=== PATIENT | female | born 1960 | race Hispanic/Latino ===

== ENCOUNTER 2019-07-03 10:06 | Emergency (ER) | payer OTHER ==
[~2019-07-03] VITALS: Ht 154.9 cm; Wt 76.7 kg
[~2019-07-03 10:06] MED LIST: ASPIRIN CHEW81 MG PO
[2019-07-03] MEDS ORDERED: ASPIRIN 81 MG CHEW TAB PO ONE (10:15)
[2019-07-03 10:57] LABS: BASOPHILS % 0.4 % (0.0-1.0); BILIRUBIN,URINE NEGATIVE (NEGATIVE); CLARITY,URINE CLEAR (CLEAR); COLOR,URINE YELLOW (YELLOW); EOSINOPHILS # (AUTO) 0.1 (0.0-0.4); EOSINOPHILS % 1.3 % (0.0-6.0); HEMOGLOBIN 14.4 g/dL (12.0-16.0); KETONES,URINE NEGATIVE (NEGATIVE); LEUKOCYTE ESTERASE ,URINE NEGATIVE (NEGATIVE); LYMPHOCYTES # (AUTO) 3.3 (1.0-3.2); LYMPHOCYTES % 39.5 % (18.0-39.1); MEAN CORPUSCULAR HEMOGLOBIN 31.4 pg (28-32); MEAN CORPUSCULAR HGB CONC 34.3 g/dL (31-35); MEAN CORPUSCULAR VOLUME 91.7 fL (81-99); MONOCYTES # (AUTO) 0.6 (0.2-0.8); MONOCYTES % 6.8 % (4.4-11.3); NEUTROPHILS # (AUTO) 4.3 (2.1-6.9); NEUTROPHILS % 51.8 % (38.7-80.0); NITRITE,URINE NEGATIVE (NEGATIVE); PLATELET COUNT 240 x10e3/uL (140-360); PROTEIN,URINE DIPSTICK NEGATIVE (NEGATIVE); RED BLOOD COUNT 4.58 x10e6/uL (3.6-5.1); RED CELL DISTRIBUTION WIDTH 12.1 % (11.7-14.4); URINE UROBILINOGEN 0.2 mg/dL (0.2 - 1)
[2019-07-03 11:07] LABS: BACTERIA,URINE RARE /HPF; EPITHELIAL CELLS,URINE FEW /LPF; INR 0.87; PROTHROMBIN TIME 12.3 seconds (11.9-14.5)
[2019-07-03 11:08] LABS: PARTIAL THROMBOPLASTIN TIME 28.3 seconds (23.8-35.5)
[2019-07-03 11:18] LABS: ALANINE AMINOTRANSFERASE 32 IU/L (0-55); ALBUMIN 3.7 g/dL (3.5-5.0); ALKALINE PHOSPHATASE 115 IU/L (40-150); BLOOD UREA NITROGEN 11 mg/dL (7-26); BUN/CREATININE RATIO 15 (6-25); CALCIUM 9.4 mg/dL (8.4-10.2); CARBON DIOXIDE 24 mmol/L (22-29); CHLORIDE 107 mmol/L (98-107); CREATINE KINASE 90 IU/L (29-168); CREATININE, SERUM 0.74 mg/dL (0.57-1.11); EST GLOMERULAR FILTRATION RATE > 60 ML/MIN (60-); GLUCOSE 110 mg/dL (74-118); SODIUM 141 mmol/L (136-145)
--- NOTE | 2019-07-03 11:19 | Diagnostic Imaging Report ---
EXAMINATION: CHEST SINGLE (PORTABLE) INDICATION: Chest pain COMPARISON: None FINDINGS: LINES/TUBES:EKG leads overlie the chest. LUNGS:The lungs are well-inflated. No focal consolidation or pulmonary edema. PLEURA:No pleural effusion or pneumothorax. MEDIASTINUM:The cardiomediastinal silhouette appears normal in size and shape. BONES/SOFT TISSUES:No acute osseous injury. ABDOMEN:No free air under the diaphragm. IMPRESSION: No focal pneumonia or pulmonary edema. Signed by: Juan Anthony MD on 07/03/2019 11:16 AM
[2019-07-03 16:33] LABS: CREATINE KINASE MB 0.7 ng/mL (0-5.0)
[2019-07-03 16:41] VITALS: BP 116/70
== END 2019-07-03 16:48 | disposition home or self-care (01) ==
LOC: ER 10:06
DX: R07.89 Other chest pain (principal); R06.09 Other forms of dyspnea; R42 Dizziness and giddiness; R11.0 Nausea
CPT/HCPCS: 36415; 71045; 80053; 81001; 82550; 82553; 83735; 83880; 84484; 85025; 85610; 85730; 93005; 99284

== ENCOUNTER → 2019-08-06 | Outpatient (CLI) | payer OTHER ==
--- NOTE | 2019-08-07 20:10 | EXERCISE STRESS TEST ---
DATE OF STUDY: 08/06/2019 08:31:00 Stress Test - Treadmill ONLY Treadmill Stress Test REASON FOR STUDY: Chest pain. STUDY QUALITY: Technically difficult with artifact. ELECTROCARDIOGRAPHIC STRESS SUMMARY: The patient underwent regular treadmill stress testing under the usual Jeff protocol. Resting heart rate at baseline was 112 beats per minute with a blood pressure of 102/66. Maximal heart rate was 173 beats per minute representing 107% of age-predicted maximal heart rate. Blood pressure at peak stress was 126/93. The patient elicited no cardiac symptoms throughout the stress protocol. The patient's stress test was stopped due to dyspnea and reaching target heart rate. ELECTROCARDIOGRAPHIC STRESS SUMMARY: The patient's baseline 12-lead electrocardiogram showed sinus tachycardia with nonspecific ST-T wave abnormalities. There was artifact noted throughout the entire stress summary. The patient reached stage II of the Jeff protocol, achieving a maximal metabolic equivalence of 7. Total exercise time was 4 minutes and 51 seconds. There were no significant ST deviations or cardiac arrhythmias throughout the stress summary. CONCLUSION: Normal clinical, hemodynamic, and electrocardiographic stress test. Campbell Suh DO BM/MODL /[id number]
== END ==
LOC: CARD 08:21
PROVIDERS: ATTEND Family Medicine
DX: R07.89 Other chest pain (principal); Z86.73 Personal history of transient ischemic attack (TIA), and cerebral infarction without residual deficits
CPT/HCPCS: 93017; 93880